=== PATIENT | male | born 1950 | race Caucasian/White ===

== ENCOUNTER 2023-09-06 18:08 | Outpatient (CLI) | payer MEDICARE, SELFPAY ==
[2023-09-06 17:48] LABS: Basophils # 0.1 K/mm3 (0-0.2); Basophils % 0.6 % (0.1-2.0); Eosinophils # 0.1 K/mm3 (0.0-0.4); Eosinophils % 0.8 % (0.1-12.0); Hematocrit 41.2 % (42.0-52.0); Hemoglobin 13.4 g/dL (14.1-18.0); Lymphocytes # 2.1 K/mm3 (0.7-4.5); Mean Corpuscular HGB Conc 32.5 g/dL (31.8-35.4); Mean Corpuscular Volume 95.4 fl (80-94); Mean Platelet Volume 8.9 fl (7.4-10.4); Monocytes # 0.9 K/mm3 (0.1-1.0); Monocytes % 6.9 % (1.7-9.3); Neutrophils # 9.2 K/mm3 (1.8-7.8); Neutrophils % 74.7 % (37.0-80.0); Platelet Count 298 K/mm3 (142-424); Red Blood Count 4.32 M/mm3 (4.60-6.20); Red Cell Distribution Width 13.2 % (11.5-17.5); White Blood Count 12.4 K/mm3 (4.8-10.8)
[2023-09-06 18:07] LABS: Alanine Aminotransferase 22 U/L (12-78); Albumin Level 3.9 g/dl (3.5-5.0); Albumin/Globulin Ratio 1.1 (1.1-1.8); Alkaline Phosphatase 113 U/L (38-126); Aspartate Amino Transferase 33 U/L (17-59); Bilirubin,Total 1.1 mg/dl (0.2-1.3); Blood Urea Nitrogen 14 mg/dl (9-20); Calcium 9.2 mg/dl (8.4-10.2); Carbon Dioxide 25 mmol/L (22.0-30.0); Chloride 103 mmol/L (98-107); Chol/HDL Ratio 4.5 (1-3.5); Cholesterol 165 mg/dl (140-200); Estimated Glomerular Filt Rate 59 ml/min (>60); GFR (African American) 72 ML/MIN (>60); Globulin 3.5 g/dL (1.3-3.2); Glucose 129 mg/dl (74-100); HDL Cholesterol 37 mg/dl (40-60); Sodium 137 mmol/L (136-145); Total Protein,Serum 7.4 g/dl (6.3-8.2); Triglycerides 98 mg/dl (30-150); VLDL Cholesterol 20 mg/dL (0-40)
[2023-09-06 18:18] LABS: Direct LDL Cholesterol 92.97 mg/dL (100-129)
[2023-09-06 18:22] LABS: 25-OH Vitamin D, Total 31.3 ng/mL (30-100)
[2023-09-06 18:38] LABS: Prostate Specific Ag Screen 0.7 ng/ml (0.0-4.0); Thyroid Stimulating Hormone 0.68 uIU/mL (0.465-4.68)
[2023-09-06 18:52] LABS: Hemoglobin A1C 5.2 % (4.0-6.0)
[2023-09-06 18:57] LABS: Vitamin B12 983 pg/mL (239-931)
== END 2023-09-06 23:59 ==
PROVIDERS: PCP Family Medicine; Visit Provider Family Medicine
DX: N20.0 Calculus of kidney (principal); R10.9 Unspecified abdominal pain; I20.89 Other forms of angina pectoris; R79.89 Other specified abnormal findings of blood chemistry; B96.89 Other specified bacterial agents as the cause of diseases classified elsewhere; D72.829 Elevated white blood cell count, unspecified; R06.09 Other forms of dyspnea; Z79.899 Other long term (current) drug therapy; Z12.5 Encounter for screening for malignant neoplasm of prostate
CPT/HCPCS: 80053; 80061; 82306; 82607; 83036; 84443; 85025; 87086; G0103

== ENCOUNTER 2023-09-20 07:09 | Outpatient (CLI) | payer MEDICARE, SELFPAY ==
--- NOTE | 2023-09-20 07:10 | CT_ITS ---
FINAL REPORT CLINICAL HISTORY: kidney stone, lower abd pain FINDINGS: Axial CT images of the abdomen and pelvis were obtained without intravenous contrast. Coronal reformatted images were also obtained.This study was performed with techniques to keep radiation doses as low as reasonably achievable (ALARA). Individualized dose reduction techniques using automated exposure control or adjustment of mA and/or kV according to the patient's size were employed. Abdomen: There are multiple nodules in the lung bases. The larger nodule in the posterior left lower lobe measures 13 mm. There is no evidence of renal stone or hydronephrosis. There is a left hepatic lobe mass measuring approximately 8.8 x 5.9 cm consistent with neoplastic involvement. This involves the gallbladder and proximal duodenum and may represent a primary hepatic neoplasm or a metastasis. The spleen, pancreas, and adrenal glands are unremarkable. There is a 6.7 cm left renal cyst. Moderate vascular calcifications are noted. Pelvis: The appendix is normal. The urinary bladder is unremarkable. The GI tract demonstrates no obstruction. There is a small amount of ascites in the pelvis. IMPRESSION: Large hepatic mass consistent with primary neoplasm or a metastasis. Multiple nodules in the lung bases worrisome for pulmonary metastases. Small amount of ascites. Jodi, in the provider's office, was notified of these findings at 8:45 AM on 09/20/2023 Reviewed, Interpreted and Dictated by Thanh Suarez III, MD Transcribed by Alla Gomez Authenticated and [facility]
== END 2023-09-20 23:59 ==
LOC: RAD 07:10
PROVIDERS: PCP Family Medicine; Visit Provider Family Medicine
DX: N20.0 Calculus of kidney (principal)
CPT/HCPCS: 74176

== ENCOUNTER 2023-09-21 06:11 | Outpatient (CLI) | payer MEDICARE, SELFPAY ==
--- NOTE | 2023-09-21 | CA_ITS ---
APPROVED REPORT Exam: Pharmacologic Technologist: Marta Romero, Ht: 5 ft 10 in Wt: 170 lbs BSA: 1.95 m2 HR: 80 bpm BP: 140/85 mmHg Rhythm: SR Medical History Medical History: Smoking Medications: TAMSULOSIN,,,,, Hydrocodone-Acetaminohen,,,,, Allergies: No known drug allergies Cardiac Risk Factors: Smoking Stress Test Details Test: LEXISCAN HR Resting HR: 78 bpm Max Heart Rate (APMHR): 147 bpm Max HR Achieved: 109 bpm Target HR (85% APMHR): 125 bpm % of APMHR: 74 Recovery HR: 88 bpm BP Resting BP: 140/85 mmHg Max BP: 144/77 mmHg Recovery BP: 143.0/68.0 mmHg ECG Resting ECG: NSR Stress ECG: No significant ST changes Arrhythmia: None Clinical Exercise duration: 04:02 min Highest Stage Achieved: Exercise capacity: 1.0 METs Stress ECG Conclusion PT HAD NO SYMPTOMS MULTIPLE PVC NO SIGNIFICANT ST CHANGES CONCLUSION: EKG UNREMARKABLE DUE TO LEXISCAN STRESS MYOVIEW IMAGES ARE REPORTED SEPARATELY Test Summary REST 02:42 . . 78 . 140/ 85 . . Stage 1 01:00 . . 103 . . . . Stage 2 01:00 . . 102 . 136/ 83 . . Stage 3 01:00 . . 98 . 128/ 86 . . Stage 4 01:00 . . 99 . 129/ 78 . . Stage 4 01:02 . . 100 . 129/ 78 . Stop exercise at 04:02 RECOVERY 01:00 . . 96 . 144/ 77 . . RECOVERY 02:00 . . 91 . 144/ 77 . . RECOVERY 03:00 . . 91 . 126/ 75 . . RECOVERY 03:28 . . 89 . 143/ 68 . . Electronically signed by : Lexy Espinoza MD 09/22/2023 21:10:55
--- NOTE | 2023-09-21 06:28 | NM_ITS ---
APPROVED REPORT Exam: Nuclear Stress Test Indication: Angina, Former tobacco use Patient Location: Outpatient Stress Tech: Marta Romero MA Tech:Haleigh Norman ARRT, RT (R)(N) Ht: 5 ft 10 in Wt: 170 lbs HR: 78 bpm BP: 140/85 mmHg BSA: 1.95 m2 TID: 1.51 BMI: 24.3 History: Angina, Former tobacco use Procedure: Patient received 0.4 mg of intravenous Lexiscan, resting heart rate 78 bpm, resting blood pressure 140/85 mmHg, with Lexiscan maximum heart rate achieved was 109 bpm which is % of the maximum predicted heart rate and blood pressure was 144/77 mmHg. With Lexiscan, patient denied any complaint of chest pain. Cardiac Stress and Resting SPECT Images: Cardiac Stress and Resting SPECT images were obtained using technetium 99m Myoview 30.3 mCi stress and 10.94 mCi at rest. Resting and stress imaging in supine and prone position demonstrate a large sized, severe, fixed perfusion defect in the inferior and inferolateral mercer from the base and extending distally towards the inferoapical region. There is increased transient ischemic dilatation ratio (TID 1.51), suggestive of possible multivessel disease or balanced ischemia. Gated imaging demonstrates normal global LV systolic function. There is mild hypokinesis in the basal inferior LV wall. LVEF is calculated at 68%. Conclusion: Large sized, severe, fixed perfusion defect in the inferior and inferolateral mercer from the base and extending distally towards the inferoapical region. There is increased transient ischemic dilatation ratio (TID 1.51), suggestive of possible multivessel disease or balanced ischemia. Gated imaging demonstrates normal global LV systolic function. There is mild hypokinesis in the basal inferior LV wall. LVEF is calculated at 68%. Electronically signed by : Lexy Espinoza MD 09/22/2023 21:15:18
--- NOTE | 2023-09-21 08:05 | CA_ITS ---
APPROVED REPORT EXAM: Comprehensive 2D, Doppler, and color-flow Echocardiogram Therapeutic Case Manager: Radha Alvarez, RT(R) Ht: 5 ft 10 in Wt: 170lbs BSA: 1.95 BP: 108/58 mmHg Indications: angina, ex smoker, fatigue, BURT, metastatic cancer 2D Dimensions LA Volume 12.70 mL LA Volume Index 6.51 mL/m2 (M/F) 16-34 EF AP4 71.60 % GL Strain -21.2 % M-Mode Dimensions RVDd 2.76 cm (0.9-2.6) LA Diam 2.55 cm (1.9-4.0) LVDd 5.22 cm (3.5-5.7) LVDs 4.16 cm (3.5-5.7) IVSd 0.83 cm (0.6-1.1) PWd 0.76 cm (0.6-1.1) EF (Teich) 41.20% FS 20.30% EDV (Teich) 130.70 mL ESV (Teich) 76.80 mL LV Diastology E Decel Time 237 (160-240 msec) E/A Ratio 0.7 Aortic Valve SANYA Index 0.54 cm2/m2 AoV Peak Kali. 279.0 (50-130 cm/s) AO Peak GR. 31.30 mmHg AO Mean GR. 15.30 (<5 mmHg) AO VTI 51.9 (18-25 cm) SANYA (VTI) 1.08 (2.5-4.5 cm2) Mitral Valve MV E Max Kali. 59.0 (40-130 cm/s) MV A Velocity 87.0 (40-130 cm/s) E/A Ratio 0.68 MV PHT 69.0 ms Left Ventricle The left ventricle is normal size. The left ventricular systolic function is normal. The left ventricular ejection fraction is within the normal range. There is increased LV wall thickness. There is normal LV segmental wall motion. Transmitral Doppler flow pattern suggests impaired LV relaxation. LVEF is 60%. Right Ventricle The right ventricle is normal size. The right ventricular systolic function is normal. Atria The left atrium size is normal. The right atrium size is normal. There is no Doppler evidence of interatrial shunt. Aortic Valve The aortic valve is mildly thickened. Mild aortic stenosis. The aortic valve area by 2D planimetry is 2.0 cm2. Peak velocity is 2.8 m/s. Mean AV gradient 15 mmHg. Max AV gradient 30 mmHg. No aortic regurgitation is present. Mitral Valve The mitral valve leaflets are mildly thickened. No evidence of mitral valve stenosis. Trace mitral regurgitation. Tricuspid Valve The tricuspid valve leaflets are thin and pliable. Trace tricuspid regurgitation. There is insufficient TR jet to estimate RVSP. Pulmonic Valve The pulmonary valve is normal in structure. Trace pulmonic regurgitation. Great Vessels The aortic root is normal in size. The ascending aorta is normal in size. IVC is normal in size and collapses >50% with inspiration. Pericardium There is no pericardial effusion. Other Information Study Quality: Fair Conclusion Normal biventricular systolic function. Mild aortic stenosis (SANYA by 2D planimetry is 2.0 cm2. Peak velocity is 2.8 m/s. Mean AV gradient 15 mmHg. Max AV gradient 30 mmHg). Electronically signed by : Lexy Espinoza MD 09/22/2023 12:07:11
[2023-09-21] MEDS: REGADENOSON 0.4MG/5ML SYRINGE 0.400000000000000022 MG IV (08:14)
[2023-09-21] MEDS: SODIUM CHLORIDE 0.9% 10ML SYR (RAD ONLY) 10 ML IV ×2 (08:15)
[2023-09-21] MEDS: ISOTOPE MYOVIEW (PER STUDY) 1 DOSE IV (08:15)
--- NOTE | 2023-09-21 09:30 | XR_ITS ---
FINAL REPORT CLINICAL HISTORY: lung nodule, wheeze COMPARISON: None FINDINGS: Two views of the chest were obtained. The heart size and pulmonary vascularity are within normal limits. The mediastinum is normal. Left base opacity likely represents atelectasis or pneumonia. There are multiple small nodules in the right lung, granulomas versus metastases. There is no pneumothorax. The bony thorax is intact. IMPRESSION: Multiple small right lung nodules, granulomas versus metastases. Chest CT could further evaluate. Reviewed, Interpreted and Dictated by Thanh Suarez III, MD Transcribed by Mikayla Loyola Authenticated and [facility]
== END 2023-09-21 23:59 ==
LOC: RAD 06:13
PROVIDERS: PCP Family Medicine; Visit Provider Family Medicine
DX: I20.89 Other forms of angina pectoris (principal); R53.83 Other fatigue; R68.89 Other general symptoms and signs; R06.09 Other forms of dyspnea; R40.0 Somnolence; R07.9 Chest pain, unspecified
CPT/HCPCS: 71046; 78452; 93017; 93018; 93306; A9502; J2785

== ENCOUNTER 2023-09-27 12:35 | Outpatient (CLI) | payer MEDICARE, SELFPAY ==
[2023-09-27 13:09] LABS: Basophils # 0.1 K/mm3 (0-0.2); Basophils % 0.7 % (0.1-2.0); Eosinophils # 0.2 K/mm3 (0.0-0.4); Eosinophils % 1.9 % (0.1-12.0); Hematocrit 37.8 % (42.0-52.0); Hemoglobin 12.6 g/dL (14.1-18.0); Lymphocytes # 1.3 K/mm3 (0.7-4.5); Lymphocytes % 13.5 % (10-50); Mean Corpuscular HGB Conc 33.3 g/dL (31.8-35.4); Mean Corpuscular Hemoglobin 30.1 pg (27.0-31.2); Mean Corpuscular Volume 90.5 fl (80-94); Mean Platelet Volume 8.3 fl (7.4-10.4); Monocytes # 0.6 K/mm3 (0.1-1.0); Neutrophils # 7.4 K/mm3 (1.8-7.8); Platelet Count 295 K/mm3 (142-424); Red Blood Count 4.18 M/mm3 (4.60-6.20); Red Cell Distribution Width 13.3 % (11.5-17.5); White Blood Count 9.4 K/mm3 (4.8-10.8)
[2023-09-27 13:33] LABS: Activated Partial Thrombo Time 36.3 seconds (22.8-30.6); INR 1.18 (0.9-1.1); Prothrombin Time 12.6 seconds (10.1-12.5)
[2023-09-27 14:29] LABS: Blood Urea Nitrogen 24 mg/dl (9-20); Estimated Glomerular Filt Rate 50 ml/min (>60); GFR (African American) 60 ML/MIN (>60)
== END 2023-09-27 23:59 ==
LOC: LAB 12:36
PROVIDERS: PCP Family Medicine; Visit Provider Internal Medicine Medical Oncology
DX: R16.0 Hepatomegaly, not elsewhere classified (principal); R79.1 Abnormal coagulation profile
CPT/HCPCS: 36415; 82565; 84520; 85025; 85610; 85730

== ENCOUNTER 2023-09-28 08:25 | Outpatient (CLI) | payer MEDICARE, SELFPAY ==
[2023-09-28] VITALS (10 sets, daily range): BP systolic 101–154; BP diastolic 59–82; PULSE 72–80; RESP 16–18; TEMP 36.7–36.8; O2SAT 96–100
--- NOTE | 2023-09-28 08:36 | CT_ITS ---
FINAL REPORT CLINICAL HISTORY: .liver biopsy FINDINGS: CT GUIDE LIVER BIOPSY. HISTORY: Liver mass ATTENDING PHYSICIAN: Dr. Gutierrez PHYSICIAN CIRCULATION REPRESENTATIVE: Ladarius Alexander PA-C PROCEDURE: After informed consent was obtained and a timeout was performed, the patient was prepped and draped in usual sterile fashion over the right upper quadrant. Utilizing local anesthesia and sterile technique with a coaxial system, access to the lesion was obtained. 5 20-gauge core biopsy passes were made. Post biopsy films demonstrate no complication. The patient received mild procedural sedation. The patient tolerated the procedure well and left the department in good condition. IMPRESSION: Status post CT-guided biopsy of a liver mass. PROCEDURAL SEDATION: 2 mg of IV Versed and 50 mcg of Fentanyl were administered. Continuous vital sign monitoring was used. An RN was present during the sedation process. Overall sedation time was 30 minutes. Films reviewed , interpreted and dictated by Dr. Gutierrez. Transcribed by Ladarius Alexander PA-C. Reviewed, Interpreted and Dictated by Jason Gutierrez MD Transcribed by IRENE Swift Authenticated and [facility]
== END 2023-09-28 12:49 | disposition home or self-care (01) ==
PROVIDERS: PCP Family Medicine; Visit Provider Internal Medicine Medical Oncology
DX: R16.0 Hepatomegaly, not elsewhere classified (principal)
CPT/HCPCS: 47000; 77012; 88307; 88341; 88342

== ENCOUNTER 2023-10-05 10:53 | Outpatient (CLI) | payer MEDICARE, SELFPAY ==
[2023-10-05 10:54] VITALS: BMI 22.3
[2023-10-05 11:36] LABS: Basophils # 0.1 K/mm3 (0-0.2); Basophils % 0.5 % (0.1-2.0); Eosinophils # 0.1 K/mm3 (0.0-0.4); Eosinophils % 0.4 % (0.1-12.0); Hematocrit 42.2 % (42.0-52.0); Hemoglobin 13.3 g/dL (14.1-18.0); Lymphocytes # 1.4 K/mm3 (0.7-4.5); Lymphocytes % 6.2 % (10-50); Mean Corpuscular HGB Conc 31.5 g/dL (31.8-35.4); Mean Corpuscular Hemoglobin 29.1 pg (27.0-31.2); Mean Corpuscular Volume 92.6 fl (80-94); Mean Platelet Volume 8.4 fl (7.4-10.4); Monocytes # 1.2 K/mm3 (0.1-1.0); Monocytes % 5.3 % (1.7-9.3); Neutrophils # 19.9 K/mm3 (1.8-7.8); Neutrophils % 87.6 % (37.0-80.0); Platelet Count 358 K/mm3 (142-424); Red Blood Count 4.55 M/mm3 (4.60-6.20); White Blood Count 22.8 K/mm3 (4.8-10.8)
[2023-10-05 11:40] LABS: Activated Partial Thrombo Time 29.5 seconds (22.8-30.6); INR 1.19 (0.9-1.1); Prothrombin Time 12.7 seconds (10.1-12.5)
--- NOTE | 2023-10-05 11:41 | PC.NURSE ---
10/05/2023 11:20 AM Patient presents for lab work after appointment with provider. Blood drawn via LAC x 3 attempts. Patient tolerated well. Site secured with 2x2 gauze and coban.
[2023-10-05 11:44] LABS: Alanine Aminotransferase 131 U/L (12-78); Albumin Level 3.2 g/dl (3.5-5.0); Albumin/Globulin Ratio 0.8 (1.1-1.8); Alkaline Phosphatase 477 U/L (38-126); Aspartate Amino Transferase 120 U/L (17-59); Bilirubin,Total 10.6 mg/dl (0.2-1.3); Blood Urea Nitrogen 35 mg/dl (9-20); Calcium 9.9 mg/dl (8.4-10.2); Carbon Dioxide 24 mmol/L (22.0-30.0); Chloride 99 mmol/L (98-107); Creatinine Clearance Estimated 45 mL/min (50-200); Estimated Glomerular Filt Rate 46 ml/min (>60); GFR (African American) 56 ML/MIN (>60); Globulin 3.8 g/dL (1.3-3.2); Glucose 172 mg/dl (74-100); Sodium 133 mmol/L (136-145)
[2023-10-05 12:09] LABS: MANUAL DIFFERENTIAL MANUAL DIFFERENTIAL (MANUAL DIFF)
[2023-10-05 12:55] LABS: Bilirubin, Conjugated 6.9 mg/dL (0.0-0.3); Bilirubin,Direct 9.2 mg/dl (0.0-0.4); Bilirubin,Indirect 1.4 mg/dL (0.0-0.9); Bilirubin,Total 10.6 mg/dl (0.2-1.3); Bilirubin,Unconjugated 1.3 mg/dL (0.0-1.1)
[2023-10-05 13:55] LABS: Eosinophils % 1 % (0-3); Lymphocytes % 2 % (10-50); Monocytes % 11 % (2-9); Neutrophils % 84 % (42-76); Total Cells Counted 100
[2023-10-05 13:57] LABS: Platelet Estimate Normal; RBC Morphology Normal
== END 2023-10-05 11:35 | disposition home or self-care (01) ==
LOC: INF 10:54
PROVIDERS: PCP Family Medicine; Visit Provider Internal Medicine Medical Oncology
DX: R10.9 Unspecified abdominal pain (principal); R16.0 Hepatomegaly, not elsewhere classified
CPT/HCPCS: 36415; 80053; 82247; 82248; 85007; 85025; 85610; 85730